=== PATIENT | male | born 1985 | race Two or more races ===

== ENCOUNTER 2017-05-18 02:41 | Emergency (ER) | payer SELFPAY ==
[2017-05-18 02:50] VITALS: BP 137/80
--- NOTE | 2017-05-18 03:33 | ER Document Report ---
HPI - HPI Patient complains to provider of: Right shoulder pain Pain Level: 5 Context: Patient is a 31-year-old male that comes emergency for chief complaint of right shoulder pain. He states he can barely lift his arm, his pain has progressed over the last several days to the point that he cannot sleep tonight. 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 He denies any specific impact injury. He states he feels like it might be popped out. He denies any daily medications or any other complaints. Past Medical History - General Information source: Patient - Social History Smoking Status: Never Smoker Drug Abuse: None Lives with: Alone Family History: Reviewed & Not Pertinent - Medical History Medical History: Negative Surgical Hx: Negative - Immunizations Hx Diphtheria, Pertussis, Tetanus Vaccination: Yes Vertical Provider Document - CONSTITUTIONAL General Appearance: WD/WN, Other - Patient appears uncomfortable, holding his right arm close to his body, no severe distress - HEENT HEENT: Atraumatic, Normocephalic - NECK Neck: Normal Inspection - RESPIRATORY Respiratory: Breath Sounds Normal, No Respiratory Distress O2 Sat by Pulse Oximetry: 99 - CARDIOVASCULAR Cardiovascular: Regular Rate, Regular Rhythm - BACK Back: Normal Inspection - MUSCULOSKELETAL/EXTREMETIES Musculoskeletal/Extremeties: Tender - Tender over the AC joint, over the humeral head, mildly over the supraspinatus muscle. Patient has very limited range of motion and has difficulty abducting the right arm. 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 Normal neck exam. Course - Re-evaluation Re-evalutation: X-ray of the shoulder unremarkable. Appears to be rotator cuff, biceps tendinitis, and possible other abnormality at the humeral joint. Patient given sling for comfort, discussed precautions and recommendations in regards to this , referred to orthopedics, discussed return precautions, patient states understanding and agreement. - Vital Signs Vital signs: Temp Pulse Resp BP Pulse Ox 98.7 F 93 18 137/80 H 99 05/18/17 02:49 05/18/17 02:49 05/18/17 02:49 05/18/17 02:49 05/18/17 02:49 - Diagnostic Test Radiology reviewed: Image reviewed, Reports reviewed Procedures - Immobilization Right shoulder Pre-Proc Neuro Vasc Exam: Normal Immobilizer type: Sling Performed by: PCT Post-Proc Neuro Vasc Exam: Normal Alignment checked and good: Yes Discharge - Discharge Clinical Impression: Right shoulder pain Qualifiers: Chronicity: acute Qualified Code(s): M25.511 - Pain in right shoulder Condition: Stable Disposition: HOME, SELF-CARE Additional Instructions: The x-ray of your shoulder is normal. This appears to be bicep tendon and rotator cuff inflammation and injury. Use the sling for comfort, take your arm out frequently and perform the range of motion exercises as we discussed. Apply ice to the shoulder 3-4 times a day for 10-15 minutes. Take the anti- inflammatory as prescribed. Take the medication given tonight only if needed to sleep. Follow-up with the orthopedic referral for additional evaluation and treatment. Return to the emergency department for any concerning or worsening symptoms including redness, increased swelling, fever, or any other concerning symptoms. Prescriptions: Naproxen 500 mg PO BID #20 tablet Forms: Return to Work Referrals: CORNELIUS PETER MD [ACTIVE STAFF] - Follow up tomorrow
--- NOTE | 2017-05-18 04:09 | RADIOLOGY REPORT (SQ) ---
EXAM DESCRIPTION: SHOULDER RIGHT 2 OR MORE VIEWS CLINICAL HISTORY: 31 years, Male, pain, can't move arm COMPARISON: None. NUMBER OF VIEWS: Three. TECHNIQUE: Internal, external, scapular Y. LIMITATIONS: None. FINDINGS: Bones, joints, and soft tissues appear radiographically intact. IMPRESSION: Intact right shoulder. 2011 [employer]- All Rights Reserved
[2017-05-18] MEDS ORDERED: HYDROCODONE/ACETAMINOPHEN 5-325 MG 6 TAB/DSPK PO PRN (04:36)
== END 2017-05-18 04:54 | disposition home or self-care (01) ==
LOC: ER 02:41
DX: M25.511 Pain in right shoulder (principal)
CPT/HCPCS: 99283